=== PATIENT | female | born 1940 | race Caucasian/White ===

== ENCOUNTER 2017-03-17 10:41 | Inpatient (IN) | payer OTHER ==
[~2017-03-17] VITALS: Ht 154.9 cm; Wt 68.4 kg
[~2017-03-17 10:41] MED LIST: ASPIR-LOW81 MG PO; DESOXIMETASONE15 G1 TP; FEXOFENADINE H180 MG PO; GABAPENTIN300 MG PO; HYDROCHLOROTH12.5 M3 PO; IRBESARTAN300 MG PO; LOVASTATIN40 MG PO; NORVASC5 MG PO; TRAMADOL HCL50 MG PO; ZITHROMAX250 MG PO
[2017-03-17 14:53] VITALS: BP 141/67
[2017-03-17] MEDS ORDERED: LIPITOR40 MG PO (15:57)
[2017-03-17] MEDS ORDERED: LOVENOX40 MG/0.4 SC (16:02)
[2017-03-17] MEDS ORDERED: ZOFRAN4 MG/2 ML IV (16:03)
[2017-03-17] MEDS ORDERED: PROTONIX IV40 MG IV (16:04)
[2017-03-17] MEDS ORDERED: DUONEB 2.5-0.5 M3 ML AEROSOL (16:06)
[2017-03-17] MEDS ORDERED: PAIN RELIEF325 M1 PO (16:07)
[2017-03-17] MEDS ORDERED: ARTIFICIAL TEAR1510 BOTH EYES (16:10)
[2017-03-17] MEDS ORDERED: DIOVAN320 MG PO (16:11)
[2017-03-17] MEDS ORDERED: VITAMIN B-12250 MCG PO (16:13)
[2017-03-17] MEDS ORDERED: PLAVIX75 MG PO (16:14)
[2017-03-18 00:06] VITALS: BP 128/61
[2017-03-18 04:50] LABS: HEMATOCRIT 38.5 % (36.0-46.0); MCH 28.7 PG (29.0-34.0); MCV 87.1 FL (83-99); MEAN PLAT.VOLUME 10.1 uM^3 (9.5-12.4); PLATELET COUNT 248 K/uL (156-360); RBC DIS.WIDTH-CV 12.7 % (11.8-14.6); RBC DIS.WIDTH-SD 40.4 % (39-53); RED BLOOD COUNT 4.42 M/uL (3.80-5.20)
[2017-03-18 05:00] VITALS: BP 108/56
[2017-03-18 05:18] LABS: CHLORIDE 109 mEq/L (99-109); POTASSIUM 3.7 mEq/L (3.7-5.4); SODIUM 140 mEq/L (136-147)
[2017-03-18 05:21] LABS: GLUCOSE 95 mg/dL (70-99)
[2017-03-18 05:22] LABS: ANION GAP 9 MEQ/L (2-14)
[2017-03-18 05:23] LABS: TOTAL BILIRUBIN 0.6 mg/dL (0.0-1.0)
[2017-03-18 05:24] LABS: ALKALINE PHOSPHATASE 50 IU/L (3-129); GFR ESTIMATE (CALCULATED) 57 mL/min/
[2017-03-18 05:25] LABS: UREA NITROGEN (BUN) 14 mg/dL (9-23)
[2017-03-18 15:12] VITALS: BP 142/65
[2017-03-19 05:23] VITALS: BP 107/54
[2017-03-19 16:01] VITALS: BP 125/56
[2017-03-20 04:47] VITALS: BP 119/55
[2017-03-20 14:59] VITALS: BP 119/67
[2017-03-21 05:00] VITALS: BP 113/54
[2017-03-21 14:33] VITALS: BP 127/58
[2017-03-22 05:10] VITALS: BP 119/56
[2017-03-22 16:00] VITALS: BP 136/63
[2017-03-23 05:15] VITALS: BP 115/56
[2017-03-23 14:58] VITALS: BP 124/69
[2017-03-24 05:13] VITALS: BP 127/62
[2017-03-24 16:49] VITALS: BP 141/67
[2017-03-25 04:56] VITALS: BP 111/55
[2017-03-25 14:58] VITALS: BP 127/60
[2017-03-26 05:04] VITALS: BP 105/52
[2017-03-26] MEDS ORDERED: LIPITOR40 MG PO (13:21)
[2017-03-26] MEDS ORDERED: DIOVAN320 MG PO (13:21)
[2017-03-26] MEDS ORDERED: PLAVIX75 MG PO (13:21)
[2017-03-26] MEDS ORDERED: ASPIR-LOW81 MG PO (13:21)
[2017-03-26] MEDS ORDERED: NORVASC5 MG PO (13:21)
[2017-03-26 15:01] VITALS: BP 129/61
[2017-03-27 05:10] VITALS: BP 122/58
[2017-03-27 12:28] LABS: MCHC 32.7 G/DL (30.0-36.0); MCV 88.7 FL (83-99); MEAN PLAT.VOLUME 10.3 uM^3 (9.5-12.4); PLATELET COUNT 280 K/uL (156-360); RBC DIS.WIDTH-CV 12.8 % (11.8-14.6); RBC DIS.WIDTH-SD 41.5 % (39-53); RED BLOOD COUNT 4.62 M/uL (3.80-5.20); WHITE BLOOD COUNT 6.6 K/uL (4.1-10.2)
[2017-03-27 12:53] LABS: ALKALINE PHOSPHATASE 65 IU/L (3-129); ANION GAP 6 MEQ/L (2-14); CHLORIDE 106 MEQ/L (99-109); GFR ESTIMATE (CALCULATED) 57 mL/min/; GLUCOSE 71 mg/dL (70-99); POTASSIUM 4.2 MEQ/L (3.7-5.4); SAMPLE HEMOLYSIS CHECK 0; SAMPLE ICTERIC CHECK 0; SAMPLE LIPEMIA CHECK 0; SODIUM 141 MEQ/L (136-147); TOTAL BILIRUBIN 0.6 MG/DL (0.0-1.0); UREA NITROGEN (BUN) 10 mg/dL (9-23)
[2017-03-27 15:41] VITALS: BP 105/48
[2017-03-28 04:38] VITALS: BP 120/58
== END 2017-03-28 13:55 | disposition home health service (06) | DRG 57 ==
LOC: 3WEST 10:41
PROVIDERS: Physical Medicine & Rehabilitation Pain Medicine
PROC: F07M0ZZ Range of Motion and Joint Mobility Treatment of Musculoskeletal System - Whole Body (ICD-10-PCS; principal; 2017-03-17)
DX: I69.354 Hemiplegia and hemiparesis following cerebral infarction affecting left non-dominant side (principal); J44.9 Chronic obstructive pulmonary disease, unspecified; I10 Essential (primary) hypertension; I65.22 Occlusion and stenosis of left carotid artery; E78.00 Pure hypercholesterolemia, unspecified; E03.9 Hypothyroidism, unspecified; M88.1 Osteitis deformans of vertebrae; H04.123 Dry eye syndrome of bilateral lacrimal glands; F17.200 Nicotine dependence, unspecified, uncomplicated; Z79.02 Long term (current) use of antithrombotics/antiplatelets
CPT/HCPCS: 80053; 85027; 97110 GO; 97530 GP; J1650